=== PATIENT | female | born 1995 | race American Indian/Alaskan Native ===

== ENCOUNTER 2018-01-31 13:40 | Emergency (ER) | payer BC ==
[2018-01-31] MEDS ORDERED: ZITHROMAX PO ONE (15:26)
[2018-01-31] MEDS ORDERED: XYLOCAINE 1% MPF 5 mL INFILTRATI ONE (15:26)
[2018-01-31] MEDS ORDERED: ROCEPHIN IM ONE (15:26)
[2018-01-31] MEDS ORDERED: FLAGYL PO ONE (15:26)
[2018-01-31] MEDS ORDERED: TYLENOL PO ONE (15:26)
--- NOTE | 2018-01-31 15:36 | Emergency Department Report ---
HPI - General Chief Complaint: Urogenital-Female Time Seen by Provider: 01/31/18 15:09 - HPI HPI: The patient is 22-year-old female presents for evaluation of vaginal pain and discharge. The patient reports 1 week of vaginal pain, stinging in quality, moderate in severity, exacerbated with sexual intercourse, and associated with abnormal smelling thick vaginal discharge. She shares that she received a positive test for Chlamydia at her physician's office earlier this week. She was informed yesterday to obtain treatment. The patient denies fever, trauma to the abdomen, chills, night sweats, diarrhea, blood in the stool, dark tarry stool, dysuria, hematuria, flank pain, vaginal bleeding, inability to pass flatus. ED Past Medical Hx - Past Medical History Previous Medical History?: No - Social History Smoking Status: Current Every Day Smoker - Medications Home Medications: Home Medications Medication Instructions Recorded Confirmed Last Taken Type Fluconazole [Diflucan TAB] 150 mg PO ONCE #1 tablet 01/31/18 Unknown Rx metroNIDAZOLE [Flagyl] 500 mg PO Q12HR #14 tab 01/31/18 Unknown Rx ED Review of Systems ROS: Stated complaint: VAGINAL DISCHARGE Other details as noted in HPI Constitutional: denies: fever ENT: denies: throat or neck pain Respiratory: denies: cough, shortness of breath Cardiovascular: denies: chest pain Endocrine: denies unexplained weight loss or gain Gastrointestinal: denies: abdominal pain, nausea Genitourinary: reports vaginal pain and discharge, denies: dysuria Musculoskeletal: denies: leg swelling Skin: denies: rash Neurological: denies: headache Hematological/Lymphatic: denies: easy bleeding or easy bruising Psych: denies sadness or hopelessness Physical Exam - Physical Exam Vital Signs: Vital Signs 01/31/18 14:01 Temperature 98.1 F Pulse Rate 77 Respiratory 18 Rate Blood Pressure 102/35 O2 Sat by Pulse 100 Oximetry Physical Exam: General: well-nourished, well-developed, no acute distress Head: Normocephalic, atraumatic Eyes: normal sclera ENT: Mucous membranes are pink and moist Neck: trachea midline, neck supple, No neck stiffness, no cervical adenopathy Respiratory: Breath sounds equal bilaterally, no wheezing, rales, or rhonchi Cardio: S1 and S2 present, no murmurs, rubs, gallops, capillary refill is brisk Abdomen: Normoactive bowel sounds, soft abdomen, no rigidity, no guarding or rebound tenderness Chest WALL/Back: No tenderness to palpation of the chest wall, no CVA tenderness with percussion Musc: No pitting edema Skin: No rash Neuro: no facial drooping, normal speech Psych: Normal affect ED Course Vital Signs 01/31/18 14:01 Temperature 98.1 F Pulse Rate 77 Respiratory 18 Rate Blood Pressure 102/35 O2 Sat by Pulse 100 Oximetry ED Medical Decision Making - Medical Decision Making The patient was seen and examined by myself. The patient is placed on a radiographer cardiac catheterization and continuous pulse ox. On initial evaluation, the patient was found to be in no distress. Evaluation orders were placed. Lab results revealed negative test, and normal urinalysis. The patient is given treatment for gonorrhea/chlamydia, and a tablet of pain medicine. The patient was reevaluated and reported that their symptoms were markedly improved. The patient is stable for discharge with outpatient follow-up. The patient is given follow-up and return instructions. The patient expressed understanding and agreed with the plan. The patient is discharged in stable condition. Critical care attestation.: If time is entered above; I have spent that time in minutes in the direct care of this critically ill patient, excluding procedure time. ED Disposition Clinical Impression: Cervicitis, Vaginal pain Disposition: - TO HOME OR SELFCARE Is pt being admited?: No Does the pt Need Aspirin: No Condition: Stable Instructions: Cervicitis (ED), Chlamydia Infection (ED), Sexually Transmitted Diseases (ED) Prescriptions: Fluconazole [Diflucan TAB] 150 mg PO ONCE #1 tablet metroNIDAZOLE [Flagyl] 500 mg PO Q12HR #14 tab Referrals: PRIMARY CARE, [Primary Care Provider] - 3-5 Days Forms: STI Treatment and Prevention Time of Disposition: 15:39
[2018-01-31 16:16] LABS: HCG Qualitative,Urine Negative (Negative)
[2018-01-31 16:19] LABS: Bacteria,Urine 1+ /HPF (Negative); Bilirubin,Urine NEG (Negative); Blood,Urine NEG (Negative); Color,Urine Yellow (Yellow); Mucus,Urine 3+ /HPF; Protein,Urine <15 mg/dL mg/dL (Negative); Urobilinogen,Urine < 2.0 mg/dL (<2.0)
[2018-01-31 16:28] VITALS: BP 110/56
== END 2018-01-31 16:26 | disposition home or self-care (01) ==
LOC: ED 13:40
DX: N72 Inflammatory disease of cervix uteri (principal); R10.2 Pelvic and perineal pain; F17.200 Nicotine dependence, unspecified, uncomplicated
CPT/HCPCS: 81001; 81025; 96372; 99284; J0696